=== PATIENT | male | born 1995 | race American Indian/Alaskan Native ===

== ENCOUNTER 2020-03-29 20:56 | Emergency (ER) | payer OTHER ==
[2020-03-29] MEDS ORDERED: ACETAMINOPHEN 500 MG TAB PO ONE (22:15)
[2020-03-29] MEDS ORDERED: IBUPROFEN 600 MG TAB PO ONE (22:15)
[2020-03-29] MEDS ORDERED: CYCLOBENZAPRINE 10 MG TAB PO ONE (22:16)
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
[2020-03-30 00:01] VITALS: BP 138/96
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
[2020-03-30] MEDS ORDERED: CYCLOBENZAPRINE 10 MG TAB PO ONE (01:07)
[2020-03-30] MEDS ORDERED: IBUPROFEN 600 MG TAB PO ONE (01:07)
[2020-03-30] MEDS ORDERED: ACETAMINOPHEN 500 MG TAB PO ONE (01:07)
== END 2020-03-30 01:20 | disposition home or self-care (01) ==
LOC: ED 20:56
DX: S16.1XXA Strain of muscle, fascia and tendon at neck level, initial encounter (principal); F17.200 Nicotine dependence, unspecified, uncomplicated; Z79.899 Other long term (current) drug therapy; Z88.8 Allergy status to other drugs, medicaments and biological substances; V49.49XA Driver injured in collision with other motor vehicles in traffic accident, initial encounter; Y93.89 Activity, other specified; Y92.410 Unspecified street and highway as the place of occurrence of the external cause; Y99.8 Other external cause status
CPT/HCPCS: 72125